=== PATIENT | female | born 1985 | race Caucasian/White ===

== ENCOUNTER 2021-04-28 02:58 | Emergency (ER) | payer OTHER, SELFPAY ==
--- NOTE | ~2021-04-28 | XR_ITS ---
EXAMINATION: XR chest 1V portable DATE: 04/28/2021 03:28 INDICATION: Left-sided chest pain. TECHNIQUE: A single frontal view of the chest was obtained. COMPARISON: None. FINDINGS: The chest demonstrates clear lungs without pneumonia, pleural effusion, or pneumothorax. Th e heart size is normal. IMPRESSION: 1. No acute cardiopulmonary disease. Reviewed, dictated and finalized at location B. ESSOGRAPH OPERATOR
[2021-04-28 03:09] VITALS: BP 125/71; PULSE 100; PULSE 85; RESP 14; TEMP 36.4; O2SAT 100
--- NOTE | 2021-04-28 03:14 | ECG_ITS ---
Measurements Intervals [place] Rate: 94 P: 75 ME: 167 QRS: 75 QRSD: 81 T: 42 QT: 342 QTc: 429 Interpretive Statements SINUS RHYTHM WITH SINUS ARRHYTHMIA POSSIBLE LEFT ATRIAL ENLARGEMENT BORDERLINE ST ABNORMALITY- ANTEROLATERAL LEADS BASELINE WANDER- II, III, AVF BORDERLINE ECG Electronically Signed On 04-28-2021 6:07:42 DATE NIGHT SITTER by Efrain Tomas D.O.
[2021-04-28 03:16] VITALS: BP 115/72; PULSE 81; RESP 18; O2SAT 100
--- NOTE | 2021-04-28 03:58 | ED.GENADULT ---
HPI - General Adult General Chief complaint: Chest Pain Stated complaint: chest pain after booster Time Seen by Provider: 04/28/21 03:07 History of Present Illness HPI narrative: Patient 35-year-old female who presents the emergency department with chief complaint of chest pain. The patient reports that she had her COVID-19 booster shot and started having discomfort in the left side of her chest. The patient states the pain is sharp pain worse with inspiration and worse with movement. The patient reports she saw her primary care physician they did not appreciate any axillary lymph nodes patient states the pain really starts about the area where she had the vaccine. The patient denies fever denies vomiting denies diaphoresis. Related Data Allergies Allergy/AdvReac Type Severity Reaction Status Date / Time amoxicillin Allergy Hives Verified 04/28/21 03:15 Review of Systems Review of Systems: A 10 system review of systems was completed on the patient and is negative except for what is stated in the HPI. Nursing and ancillary documentation was reviewed. Exam Narrative: GENERAL: Well-appearing, well-nourished, and in no acute distress. HEAD: Normocephalic, atraumatic. EYES: PERRLA and EOMI. ENT: Nares clear, no rhinorrhea or epistaxis. Mucous membranes moist. NECK: Supple. CHEST: Clear to auscultation. No respiratory distress. Chest wall is tender at the left sternal border at the costal cartilage HEART: Regular rate and rhythm. No murmur heard. Normal peripheral pulses. ABDOMEN: Soft, nontender, nondistended, normal active bowel sounds. EXTREMITIES: Normal range of motion. No edema. SKIN: Warm, dry, no rash. NEURO: No focal deficits. Alert and oriented x3. PSYCH: Normal mood and affect. Course Course Emergency Course: EKG sinus rhythm rate of [address] or ST depression Chest x-ray shows no evidence of focal infiltrate Vital Signs Vital signs: Vital Signs Temperature 36.4 C L 04/28/21 03:09 Pulse Rate 100 04/28/21 03:09 Respiratory Rate 14 04/28/21 03:09 Blood Pressure 125/71 04/28/21 03:09 Pulse Oximetry 100 04/28/21 03:09 Temperature 36.4 C L 04/28/21 03:09 Pulse Rate 75 04/28/21 04:18 Respiratory Rate 18 04/28/21 04:18 Blood Pressure 108/70 04/28/21 04:18 Pulse Oximetry 100 04/28/21 04:18 Medical Decision Making Vital Signs Vital Signs: Vital Signs Temperature 36.4 C L 04/28/21 03:09 Pulse Rate 100 04/28/21 03:09 Respiratory Rate 14 04/28/21 03:09 Blood Pressure 125/71 04/28/21 03:09 Pulse Oximetry 100 04/28/21 03:09 Temperature 36.4 C L 04/28/21 03:09 Pulse Rate 75 04/28/21 04:18 Respiratory Rate 18 04/28/21 04:18 Blood Pressure 108/70 04/28/21 04:18 Pulse Oximetry 100 04/28/21 04:18 Lab Data Result diagrams: 04/28/21 03:43 04/28/21 03:43 Labs: Lab Results 04/28/21 04/28/21 04/28/21 Range/Units 03:43 03:43 03:43 WBC 5.8 (4.5-10.0) K/mm3 RBC 4.54 (4.2-5.4) M/mm3 Hgb 14.0 (12.0-15.0) g/dL Hct 41.7 (37.0-47.0) % MCV 91.9 (80-100) fl MCH 30.8 (26-34) pg MCHC 33.6 (32-36) g/dl RDW 12.0 (11.5-14.5) % Plt Count 223 (150-375) k/mm3 MPV 9.6 (7.4-10.4) fl Immature Gran % (Auto) 0.2 (0-0.5) % Neut % (Auto) 47.0 (45.5-73.1) % Lymph % (Auto) 39.0 (18.3-44.2) % Meeker % (Auto) 7.8 (2.6-8.5) % Eos % (Auto) 4.8 H (0-4.4) % Baso % (Auto) 1.2 (0.2-1.2) % Lymph # (Auto) 2.26 (0.9-3.2) K/mm3 Meeker # (Auto) 0.5 (0.1-0.6) K/mm3 Eos # (Auto) 0.3 (0-0.3) K/mm3 Baso # (Auto) 0.1 (0.0-0.1) K/mm3 Abs Immat Gran (auto) 0.01 (0.00-0.031) K/mm3 Absolute Neuts (auto) 2.7 (1.3-6.7) K/mm3 Absolute Nucleated RBC 0.0 (0.0-0.012) K/mm3 Nucleated RBC % 0.0 (0.0-0.2) % PT 12.6 (11.1-14.7) Seconds INR 1.0 APTT 27.1 (22.3-36.8) SECONDS D-Dimer 0.42 (<0.48) ug/mL Sodium 139
[2021-04-28 04:02] LABS: Prothrombin Time 12.6 Seconds (11.1-14.7)
[2021-04-28 04:03] LABS: Partial Thromboplastin Time 27.1 SECONDS (22.3-36.8)
[2021-04-28 04:05] LABS: D Dimer 0.42 ug/mL (<0.48)
[2021-04-28 04:10] LABS: Alanine Aminotransferase 47 U/L (4-35); Albumin Level 4.4 g/dL (3.5-5.1); Alkaline Phosphatase 64 U/L (38-126); Anion Gap 11 mmol/L (8-16); Aspartate Amino Transferase 47 U/L (14-36); Bilirubin,Total 0.3 mg/dL (0.2-1.3); Blood Urea Nitrogen 12 mg/dL (7-17); Calcium 9.3 mg/dL (8.4-10.2); Carbon Dioxide 21 mmol/L (22-30); Chloride 107 mmol/L (98-107); Estimated CRCL calculation 84 ml/min; Estimated Glomerular Filt Rate > 60; Glucose 96 mg/dL (65-110); Lipase 78 U/L (23-300); Potassium 3.7 mmol/L (3.4-5.0); Sodium 139 mmol/L (137-145)
[2021-04-28 04:15] LABS: Basophils Absolute Auto 0.1 K/mm3 (0.0-0.1); Basophils Percent Auto 1.2 % (0.2-1.2); Eosinophils Absolute Auto 0.3 K/mm3 (0-0.3); Eosinophils Percent Auto 4.8 % (0-4.4); Hematocrit 41.7 % (37.0-47.0); Immature Granulocyte Absolute 0.01 K/mm3 (0.00-0.031); Immature Granulocyte Percent A 0.2 % (0-0.5); Lymphocytes Absolute Auto 2.26 K/mm3 (0.9-3.2); Mean Corpuscular HGB Conc 33.6 g/dl (32-36); Mean Corpuscular Hemoglobin 30.8 pg (26-34); Mean Corpuscular Volume 91.9 fl (80-100); Mean Platelet Volume 9.6 fl (7.4-10.4); Monocytes Absolute Auto 0.5 K/mm3 (0.1-0.6); Monocytes Percent Auto 7.8 % (2.6-8.5); Neutrophils Absolute Auto 2.7 K/mm3 (1.3-6.7); Platelet Count Result 223 k/mm3 (150-375); Red Blood Count 4.54 M/mm3 (4.2-5.4); White Blood Count 5.8 K/mm3 (4.5-10.0)
[2021-04-28 04:18] VITALS: BP 108/70; PULSE 75; RESP 18; O2SAT 100
[2021-04-28 04:22] LABS: Troponin I < 0.012 ng/mL (0.000-0.034)
[2021-04-28] MEDS: HYDROcodone/acetaminophen (*CRX) 5-325 MG TABLET 1 TAB PO (05:07)
[2021-04-28 05:10] VITALS: BP 101/53; PULSE 75; RESP 18; O2SAT 100
== END 2021-04-28 05:10 | disposition home or self-care (01) ==
PROVIDERS: Emergency Provider Emergency Medicine; PCP Family Medicine
DX: R07.89 Other chest pain (principal); R94.31 Abnormal electrocardiogram [ECG] [EKG]
CPT/HCPCS: 36415; 71045; 80053; 81025; 83690; 84484; 85025; 85380; 85610; 85730; 93005; 99284; A9270

== ENCOUNTER 2021-05-04 09:16 | Outpatient (CLI) | payer OTHER, SELFPAY ==
--- NOTE | ~2021-05-04 | XR_ITS ---
XR ribs LT 2V w CXR 2V DATE: 05/04/2021 09:41 INDICATION: Left upper anterior chest pain TECHNIQUE: PA and lateral chest. 3 views of the left ribs. COMPARISON: 04/28/2021 portable AP chest FINDINGS: Normal heart size. No hilar or mediastinal enlargement. No pulmonary infiltrate or consolid ation, pleural effusion or pulmonary vascular congestion or pneumothorax. Minimal dextroscoliosis of the thoracic spine. No left rib fracture or bone destruction. IMPRESSION: No active cardiopulmonary disease or significant abnormality of the left ribs Reviewed, dictated and finalized at location A. CT MARKETING SPECIALIST
== END 2021-05-04 09:17 | disposition home or self-care (01) ==
LOC: ANHIMG 09:20
PROVIDERS: PCP Family Medicine; Visit Provider Family Medicine
DX: R07.89 Other chest pain (principal)
CPT/HCPCS: 71046; 71100

== ENCOUNTER → 2022-07-05 13:39 | Outpatient (CLI) | payer OTHER, SELFPAY ==
--- NOTE | ~2022-07-05 | US_ITS ---
EXAMINATION: US soft tissue head and neck DATE: 07/05/2022 14:02 INDICATION: Localized enlarged lymph nodes at the head/neck. TECHNIQUE: Multiple grayscale and Doppler ultrasound images of the bilateral submandibular regions of concern were obtained. COMPARISON: None FINDINGS: There are multiple hypoechoic lymph nodes with typical ovoid configuration with central fatty michael wi thin and along the margins of the bilateral submandibular glands. The largest on both the left and ri ght measure up to 6 mm in maximal short axis diameters. IMPRESSION: 1. Bilateral intraparotid and periparotid lymph nodes which remain within normal limits in size. Reviewed, dictated and finalized at location A. IMPRESSION: 1. Bilateral intraparotid and periparotid lymph nodes which remain within zonia l limits in size.
== END ==
PROVIDERS: PCP Family Medicine; Visit Provider Nurse Practitioner
DX: R59.0 Localized enlarged lymph nodes (principal)
CPT/HCPCS: 76536

== ENCOUNTER 2024-02-28 08:18 | Outpatient (CLI) | payer OTHER, SELFPAY ==
[2024-02-28 14:00] LABS: Basophils Absolute Auto 0.1 K/mm3 (0.0-0.1); Basophils Percent Auto 1.5 % (0.2-1.2); Eosinophils Absolute Auto 0.2 K/mm3 (0-0.3); Eosinophils Percent Auto 3.6 % (0-4.4); Hematocrit 44.7 % (37.0-47.0); Hemoglobin 14.3 g/dL (12.0-15.0); Immature Granulocyte Absolute 0.01 K/mm3 (0.00-0.031); Immature Granulocyte Percent A 0.2 % (0-0.5); Lymphocytes Absolute Auto 2.15 K/mm3 (0.9-3.2); Lymphocytes Percent Auto 40.3 % (18.3-44.2); Mean Corpuscular Hemoglobin 31.4 pg (26-34); Mean Platelet Volume 10.5 fl (7.4-10.4); Monocytes Absolute Auto 0.3 K/mm3 (0.1-0.6); Neutrophils Absolute Auto 2.6 K/mm3 (1.3-6.7); Neutrophils Percent Auto 48.4 % (45.5-73.1); Platelet Count Result 236 k/mm3 (150-375); Red Blood Count 4.56 M/mm3 (4.2-5.4); Red Cell Distribution Width 12.7 % (11.5-14.5); White Blood Count 5.3 K/mm3 (4.5-10.0)
[2024-02-28 15:23] LABS: LDL Cholesterol Direct 95 mg/dL
[2024-02-28 16:31] LABS: Alanine Aminotransferase 47 U/L (6-35); Albumin Level 4.6 g/dL (3.5-5.1); Alkaline Phosphatase 83 U/L (38-126); Anion Gap 8 mmol/L (4-12); Aspartate Amino Transferase 98 U/L (14-36); Bilirubin,Total 0.6 mg/dL (0.2-1.3); Blood Urea Nitrogen 14 mg/dL (7-17); Calcium 9.4 mg/dL (8.4-10.2); Carbon Dioxide 29 mmol/L (22-30); Chloride 102 mmol/L (98-107); Cholesterol 177 mg/dL (0-200); Estimated Glomerular Filt Rate > 60; Glucose 70 mg/dL (65-110); HDL Direct 40 mg/dL; Potassium 4.3 mmol/L (3.4-5.0); Sodium 139 mmol/L (137-145); Triglycerides 81 mg/dL (<150)
[2024-02-28 21:21] LABS: Vitamin D 25 Hydroxy 36.5 ng/mL
[2024-02-28 22:10] LABS: Free T4 Free Thyroxine Reflex 0.81 ng/dL (0.78-2.19)
[2024-02-28 22:58] LABS: Total Triiodothyronine (T3) 1.16 NG/ML (0.97-1.69)
== END 2024-02-28 08:19 | disposition home or self-care (01) ==
LOC: ANHGOSHLAB 08:19
PROVIDERS: PCP Family Medicine; Visit Provider Family Medicine
DX: Z00.00 Encounter for general adult medical examination without abnormal findings (principal); Z13.29 Encounter for screening for other suspected endocrine disorder; R73.9 Hyperglycemia, unspecified; E78.5 Hyperlipidemia, unspecified; E53.8 Deficiency of other specified B group vitamins; E55.9 Vitamin D deficiency, unspecified; Z79.899 Other long term (current) drug therapy
CPT/HCPCS: 36415; 80053; 80061; 82306; 82607; 83036; 84439; 84443; 84480; 85025

== ENCOUNTER 2024-03-03 08:16 | Outpatient (CLI) | payer OTHER, SELFPAY ==
[2024-03-03 23:33] LABS: Hepatitis B Surface Antigen Negative (Negative)
[2024-03-03 23:39] LABS: HAV RESULT Negative (Negative); Hepatitis B Core IgM Result Negative (Negative)
[2024-03-03 23:51] LABS: Hepatitis C Virus Antibody Negative (Negative)
== END 2024-03-03 08:17 | disposition home or self-care (01) ==
LOC: ANHGOSHLAB 08:18
PROVIDERS: PCP Family Medicine; Visit Provider Nurse Practitioner Family
DX: R74.8 Abnormal levels of other serum enzymes (principal)
CPT/HCPCS: 36415; 80074

== ENCOUNTER 2024-03-10 13:53 | Outpatient (CLI) | payer OTHER, SELFPAY ==
--- NOTE | ~2024-03-10 | US_ITS ---
EXAMINATION: US thyroid DATE: 03/10/2024 14:14 INDICATION: Other specified abnormal findings of blood chemistry. Abnormal TSH. TECHNIQUE: Multiple ultrasound images of the thyroid were obtained. COMPARISON: None. FINDINGS: The right thyroid lobe measures 3.6 x 1.1 x 1.2 cm. The left thyroid lobe measures 4.7 x 1.0 x 1.3 c m. The thyroid is diffusely heterogeneous and hypoechoic. Vascularity is normal. In the left thyroid lobe, there is an 11 mm solid, hypoechoic, wider than tall nodule with lobulated margin without echo genic foci (TI-RADS TR4). IMPRESSION: 1. Small thyroid nodule. Thyroid ultrasound is recommended in one year. 2. Heterogeneous thyroid, likely chronic lymphocytic (Judith) thyroiditis. Reviewed, dictated and finalized at location A. ODITY SUPERVISOR
== END 2024-03-10 13:54 | disposition home or self-care (01) ==
LOC: MICIMG 13:53
PROVIDERS: PCP Family Medicine; Visit Provider Nurse Practitioner Family
DX: E04.1 Nontoxic single thyroid nodule (principal); R79.89 Other specified abnormal findings of blood chemistry
CPT/HCPCS: 76536

== ENCOUNTER 2024-04-22 08:24 | Outpatient (CLI) | payer OTHER, SELFPAY ==
[2024-04-22 09:30] LABS: Alanine Aminotransferase 20 U/L (6-35); Albumin Level 4.4 g/dL (3.5-5.1); Alkaline Phosphatase 68 U/L (38-126); Anion Gap 8 mmol/L (4-12); Aspartate Amino Transferase 22 U/L (14-36); Bilirubin,Total 0.8 mg/dL (0.2-1.3); Blood Urea Nitrogen 16 mg/dL (7-17); Carbon Dioxide 25 mmol/L (22-30); Chloride 105 mmol/L (98-107); Estimated Glomerular Filt Rate > 60; Glucose 92 mg/dL (65-110); Sodium 138 mmol/L (137-145)
[2024-04-22 10:27] LABS: Free T4 Free Thyroxine 1.27 ng/dL (0.78-2.19)
[2024-04-23 07:49] LABS: Triiodothyronine T3 Free 3.4 pg/mL (2.3-4.2)
[2024-04-26 22:59] LABS: Thyrotropin Receptor Antibody 4.01 IU/L (< OR = 2.00)
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
== END 2024-04-22 08:25 | disposition home or self-care (01) ==
PROVIDERS: PCP Family Medicine; Visit Provider Family Medicine
DX: E07.9 Disorder of thyroid, unspecified (principal); R79.89 Other specified abnormal findings of blood chemistry; R74.8 Abnormal levels of other serum enzymes
CPT/HCPCS: 36415; 80053; 83519; 84439; 84443; 86800; 86850

== ENCOUNTER 2024-06-30 08:29 | Outpatient (CLI) | payer OTHER, SELFPAY ==
--- OUTSIDE RECORDS SUMMARY | 2024-06-30 08:54 | XMS_ITS | Referral Summary ---
Author Organization [facility] Address [address] [place] [address] Care Team Providers Care Rug Receiving Clerk Name Role Phone Luann Hua MD Primary Care Provider [phone] Source Comments [facility],non-owned Affiliates and Associated Physician Practices is amultiple site organization consisting of ambulatory clinics and hospital sitesin [place], [place], [place] and [place]. This disclosure is being madepursuant to the Care Everywhere program and may not contain all information available regarding this patient. Last updated 18.[facility] Allergies Active Allergy Reactions Criticality Noted Date Comments Amoxicillin Rash Medium 06/11/2019 Medications * Be aware that medications may not be up to date on this document. Alwaysverify current medications with the patient. Medication Sig Dispensed Refills Start Date End Date Status Boric AcidIndications:Yeast infection involving the vagina and surrounding area 600 mg capsules. Use as directed. # 30 capsules 1 g 2 03/22/2020 Active fluconazole (DIFLUCAN) 200 MG tabletIndications:His tory of candidiasis One by mouth every other day for three doses then one weekly 15 tablet 1 05/23/2020 Active Social History Tobacco Use Types Packs/Day Years Used Date Smoking Tobacco: Never Smokeless Tobacco: Never Alcohol Use Standard Drinks/Week Comments Never 0 (1 standard drink = 0.6 oz pur e alcohol) AUDIT-C Answer Date Recorded Q1: How often do you have a drink containing alc ohol? Never 03/10/2020 Average Number of Drinks Not on file 020 Frequency of Binge Drinking Not on file 02/15 Sex and Gender Information Value Date Recorded Sex Assigned at Not on file Gender Identity Not on file Sexual Orientation Not on file Last Filed Vital Signs Vital Sign Reading Time Taken Comments Blood Pressure 118/78 06/22/2020 10:52 AM [employer] [employer] Pulse 87 06/11/2019 11:34 AM [facility] [employer] Temperature 36.3 C (97.4 F) 03/10/2020 11:08 AM [facility] [employer] Respiratory Rate 16 06/11/2019 11:34 AM [facility] [employer] Oxygen Saturation 98% 06/11/2019 11:34 AM [facility] Inhaled Oxygen Concentration - - Weight 71.7 kg (158 lb) 06/22/2020 10:52 AM [facility] [employer] Height 170.2 cm (5' 7 ) 06/22/2020 10:52 AM [employer] Body Mass Index 24.75 06/22/2020 10:52 AM [facility] Plan of Treatment Not on file Care Teams Rug Receiving Clerk Relationship Specialty Start Date End Date Luann Hua MD [address] [place] [address] PCP - General 11/20/19
--- OUTSIDE RECORDS SUMMARY | 2024-06-30 08:54 | XMS_ITS | Clinical Summary ---
Author Organization [facility] Address [address] [place] [address] Care Team Providers Care Executive Communications Manager Name Role Phone Aracely Samuel MD Primary Care Provider Allergies Active Allergy Reactions Criticality Noted Date Comments Amoxicillin Rash Medium 06/22/2022 Medications vit 21-ipax-jzabx-dh a 27mg iron- 800 mcg-250 mg capsule Take 1 tablet by mouth daily Active omega-3 fatty acids (FISH OIL CONCENTRATE ORAL) Take by mouth Active cholecalciferol 25 mcg (1,000 unit) tablet Take 1 tablet (1,000 Units total) by mouth daily Every other day Active ibuprofen (ADVIL,MOTRIN) 600 mg tablet Take 1 tablet (600 mg total) by mouth every 6 (six) hours as needed for pain 60 tablet 4 Active Additional Information Patient not taking.Reported on 08/24/2023 docusate sodium (COLACE) 100 mg capsuleIndicatio ns:constipation Take 1 capsule (100 mg total) by mouth 2 (two) times a day with a glass of water 60 capsule 4 Active polyethylene glycol (MIRALAX) 17 gram/dose bulk powder Take 17 g by mouth daily 510 g 4 Active Additional Information Patient not taking.Reported on 08/24/2023 levothyroxine (SYNTHROID) 100 mcg tabletIndication s:Hypothyroidism , unspecified type Take 1 tablet (100 mcg total) by mouth payroll and benefits manager before breakfast 90 tablet 4 Active Active Problems Patient Care Coordination No te Formatting of this note is d ifferent from the original. IVF Check List Partner name: Rudy Iqbal Partner : 07/10/1986 Blue Plan Completed: 06/27/22 Protocol: Antagonist [] PGT - M [] PGT - A [] PGT - SR [] Biopsy & Freeze All [] Fresh Transfer - Bx remaining and Freeze [x] Era or [] Other - [] Orders [x] Blood Drawn [] Appointment with Evelin Special Instructions: LMP: Cycles: EMP: []PNV []OCPS []Zithromax/Doxy []Medrol []Letrozole []Clomid []Estrace 2mg BID/TID - []Gonal F/Follistim []Menopur []Lupron []Cetrotide/Ganirelix []HCG []Lupron Trigger []JAMSHID or other - []Lovenox/ Baby ASA start - Cycle Start BMI: Body mass index is 25.22 kg/m . CPAP Needed: no [] Medically Clear [x] Orientation: [] Placed on IVF Schedule [] Financially Clear (EMP to EO if needed): [x] Consent Sent [] Consents Returned/Scanned into chart: [] Schedule Mailed/sent via Cloud[employer]: [] IVF Injectable Meds Ordered - Pharm - [] IVF Oral Meds Pharm - [] Spouse Antibiotics Pharm - [x] Smart Set Orders Placed [] Confirmed Start Button [x] COVID Counseling note sent to patient [x] Genetic Panel - drawn Problem Noted Date Diagnosed Date Encounter for male factor infertility in female patient 12/21/2023 Female infertility 12/21/2023 Screening for thyroid disorder 12/21/2023 Encounter for fertility testing 12/21/2023 care following vaginal delivery 07/11 Overview (07/13/2023): 07/12/2023 PPD #1 (CZ) 38 yo @ 39w0d s/p VAVD of viable male infant. VSS, afebrile AB+, Rubella Immune Hgb: 13.3 QBL 201 Mom and baby doing well Normal exam Ambulating, voiding, and tolerating PO, Lochia WNL MOF: Breast MOC: None VTE: Frequent ambulation Dispo: Continue routine care Subclinical hypothyroid: Patient does not feel comfortable continuing with the 75 mg and 150 mg and would prefer to take 75 mg until 6 weeks and re- evaluate. 07/13/23, PPD#2 (JF) S/p uncomplicated EBL 200 cc, Hgb 13.1 AB+, Rubella immune Vital signs reviewed and normal, MR BP x 1 Ambulating, tolerating PO, voiding spontaneously, lochia moderate, pain controlled MOF: MOC: declines, reviewed spacing VTE ppx: The patient has the following MAJOR risk factors none and the following MINOR risk factors none. SCDs ordered for VTE prophylaxis. Mood: stable Hemorrhoids: discussed tucks pads, Sitz baths and stool softeners, rx for Prep H sent Dispo: Desires discharge home today. Encounter for elective induction of labor 2023 Overview (07/13/2023): 07/11/2023 0840 (CZ) 38 yo @ 39w0d here for eIOL. Her is complicated by IVF , AMA, and subclinical hypothyroid taking synthroid. VSS, Afebrile AB+, Rubella Immune GBS Negative Reactive tracing SVE: 150/-2 S/p miso x2 Cook cath placed with patient consent. 60 cc in uterine and 60 cc in vaginal Initiate OT and titrate 2 x 2 to 20 Consider AROM when appropriate Pain management per patient wishes Anticipated 07/11/2023 1454 (CZ) VSS, afebrile Variable decelerations noted resolved with position changes. Now Category 1 Cook cath out SVE 5/80/-2 AROM performed with patient consent - moderate amount of clear odorless fluid noted OT @ 8 Continue titration per protocol Pain management per patient wishes Anticipate 07/11/2023 1710 (CZ) VSS, afebrile Patient s/p epidural Blood pressure dropped to 93/54, patient symptomatic Prolonged decel noted Fluid bolus initiated Anesthesia called to bedside FSE applied Dr. Marte called to bedside Terb in room, drawn, but not given Decel resolved after position changes and interventions OT discontinued before epidural due to decelerations SVE 790/-1 Anticipate Antepartum multigravida of advanced maternal age 1102/21/2023 Hypothyroidism during in third trimest er 02/21/2023 resulting from in vitro fertilization, antepartum 12/07/2022 Encounters Date Type Department Care Team Description 05/16/2024 12:38 PM CORPORATE TRAFFIC MANAGER - 05/16/2024 11:59 PM CORPORATE TRAFFIC MANAGER Hospital Encounter [facility] [address] [address] Bilateral breast lump; Mother currently breast-feeding Discharge Disposition: Discharge to home or self care 05/16/2024 12:38 PM CORPORATE TRAFFIC MANAGER - 05/16/2024 11:59 PM CORPORATE TRAFFIC MANAGER Hospital Encounter [facility] [address] [place] [phone] Bilateral breast lump; Mother currently breast-feeding Discharge Disposition: Discharge to home or self care 2024 11:15 AM CORPORATE TRAFFIC MANAGER Office Visit [facility] Obstetrical Gynecology [address] [place] [address] [place] [phone] Yessi Lujan, GILBERT Mass of left breast, unspecified quadrant (Primary Dx); Bilateral breast lump; Mother currently breast-feeding 05/09/2024 Telephone [facility] Obstetrical Gynecology [address] [place] [address] [place] [phone] Katie Serrano RN from Last 3 Months Immunizations Immunization Administration Dates Next Due MMR 07/13/2023(Deferred: No longer n eeded) Tdap 04/24/2023 Varicella 07/13/2023(Deferred: No longer n eeded) Surgical History Surgery Date Site/Laterality Comments WISDOM TOOTH EXTRACTION OVUM / OOCYTE RETRIEVAL 10/25/2022 EGG RETRIEVAL TRANSFER EMBRYO INTRAUTERINE 10/30/2022 EMBRYO TRANSFER 1 DAY 5 Medical History Medical History Date Comments Thyroid disease taking for ferti lity issues Family History Medical History Relation Name Comments Diabetes Brother Hypertension Brother Hypertension Father Breast cancer Neg Hx Ovarian cancer Neg Hx Uterine cancer Neg Hx Relation Name Status Comments Brother Father Alive Mother Alive Social History Tobacco Use Types Packs/Day Years Used Date Smoking Tobacco: Never Passive Smoke Exposure: Never Tobacco Cessation:Counseling Given: Not Answered AUDIT-C Answer Date Recorded Q1: How often do you have a drink containing alcohol? Never 07/10/2023 Q2: How many drinks containi ng alcohol do you have on a typical day when you are drinking? Patient does not drink Q3: How often do you have si x or more drinks on one occasion? Never 07/10/2023 Overall Financial Resource Strain (CARDIA) Answe r Date Recorded How hard is it for you to pa y for the very basics like food, housing, medical care, and heating? Not hard at all 07/10/2023 Hunger Vital Sign Answer Date Recorded Within the past 12 months, y ou worried that your food would run out before you got the money to buy more. Never true 07/10/19 24 Within the past 12 months, t he food you bought just didn't last and you didn't have money to get more. Never true 07/10/2023 PRAPARE - Transportation Answer Date Re corded In the past 12 months, has l ack of transportation kept you from medical appointments or from getting medications? No 06/15 In the past 12 months, has l ack of transportation kept you from meetings, work, or from getting things needed for daily living? No 07/10/2023 Housing Stability Vital Sign Answer Huy e Recorded In the last 12 months, was t here a time when you were not able to pay the mortgage or rent on time? No 07/10/2023 Number of Places Lived in the Last Year Not on f ile 07/10/2023 In the last 12 months, was t here a time when you did not have a steady place to sleep or slept in a snf (including now)? No 07/10/2023 [place] Depression Scale Answer Date Recorded [place] Depression Scale Total 3 08/24/2023 The thought of harming myself has occurred to me . Never 08/24/2023 Personal Safety Answer Date Recorded Have you ever been in or are you currently in a harmful physical or emotional relationship or is someone making you feel afraid or unsafe? Denies 07/10/2023 Comments No Sex and Gender Information Value Date Recorded Sex Assigned at Not on file Legal Sex Female 1:47 PM CORPORATE TRAFFIC MANAGER Gender Identity Not on file Sexual Orientation Not on file Obstetrics History Para Term AB IAB SAB Ectopic Multiple Livin g Live Births 1 1 1 0 0 0 0 0 0 1 1 Date Outcome GA Total Labor Labor/2nd/3rd Weight Sex Type Anes PTL Bethanie A1 A5 Name Clin 2023 Term 39w 0d 3h 49m 3h 25m/0h 19m/0h 05m 2.94 kg (6 lb 7.7 oz) M Vagina l Epidur al N Livin g 8 9 Peterson Norwood am, MD Complications: Intolera nce Delivery Location:[facility] Main C ampus ([facility]) Comments Age of first cycle: 12 Age at live : 38 Age of menopause : 0 Last Filed Vital Signs Vital Sign Reading Time Taken Comments Blood Pressure 90/60 2024 11:16 AM CORPORATE TRAFFIC MANAGER Pulse 102 07/13/2023 9:59 AM CDT Temperature 37.2 C (99 F) 07/13/2023 9:59 AM CDT Respiratory Rate 16 07/13/2023 9:59 AM CDT Oxygen Saturation 98% 07/13/2023 9:59 AM CDT Inhaled Oxygen Concentration - - Weight 71.8 kg (158 lb 3.2 oz) 2024 11:16 AM CORPORATE TRAFFIC MANAGER Height 170.2 cm (5' 7 ) 2024 11:16 AM CORPORATE TRAFFIC MANAGER Body Mass Index 24.78 2024 11:16 AM CORPORATE TRAFFIC MANAGER Plan of Treatment Health Maintenance Due Date Last Done Comments Varicella Vaccines (1 of 2 - 13+ 2-dose series) 1999 Hepatitis B Screening 2004 Covid-19 Vaccine (2023-2 5 season) 2023 04/23/2021, 09/11/2020, 08/21/2020 Influenza Vaccine (#1) 2023 Depression Screening 08/23/2024 08/24/2023 Cervical Cancer Screening 12/17/20242023, 12/18/2023 Regular Well Visit/Exam 18-64 12/17/2024 12/18/2023 DTaP/Tdap/Td Vaccine (2 - Td or Tdap) 04/24/2033 04/24/2023 Hepatitis C Screening Completed 06/22/2022 HPV Vaccines Aged Out No longer eligi ble based on patient's age to complete this topic Pneumococcal vaccine <65 Aged Out No longer eligible based on patient's age to complete this topic Procedures Procedure Name Priority Date/Time Associated Diagnosis Comments US BREAST BILATERAL LIMITED Schedule Routine, Read Routine (OP Routine) 05/16/2024 1:41 PM CORPORATE TRAFFIC MANAGER Bilateral breast lump Mother currently breast-feeding DIAGNOSTIC MAMMOGRAM BILATERAL W MAYKEL Schedule Routine, Read Routine (OP Routine) 05/16/2024 1:11 PM CORPORATE TRAFFIC MANAGER Bilateral breast lump Mother currently breast-feeding PAP AND HIGH RISK HPV, REFLEX TO GENOTYPING Routine 12/18/2023 9:44 AM CDT Well woman exam HEPATITIS C ANTIBODY Routine 06/22/2022 10:28 AM CORPORATE TRAFFIC MANAGER Encounter for fertility testing from Last 3 Months or Most Recently Relevant to Health Maintenance Results * US Breast Bilateral Limited (05/16/2024 1:41 PM CORPORATE TRAFFIC MANAGER) Anatomical Region Laterality Modality Breast Bilateral Ultrasound 05/16/2024 1:48 PM CORPORATE TRAFFIC MANAGER Impressions 05/16/2024 1:48 PM CORPORATE TRAFFIC MANAGER No imaging findings to suggest malignancy are seen. The patient may return to screening mammography as per ACR guidelines. OVERALL FINAL ASSESSMENT: [id number] Electronically signed by: Ni Ellis M.D. Narrative 05/16/2024 1:48 PM CORPORATE TRAFFIC MANAGER EXAMINATION: BILATERAL DIGITAL DIAGNOSTIC MAMMOGRAM AND DIGITAL BREAST TOMOSYNTHESIS; BILATERAL BREAST SONOGRAM HISTORY: Lactating patient complains of diffuse lumpiness. The nurse describes palpable abnormalities in both 12:00 breasts. COMPARISON: None TECHNIQUE: Full field digital mammographic views of the bilateral breast(s) were performed, including computer aided detection (CAD) and digital breast tomosynthesis (DBT). Directed ultrasound evaluation of the bilateral breast(s) was performed. BREAST PARENCHYMAL COMPOSITION: The breasts are extremely dense, which lowers the sensitivity of mammography. MAMMOGRAM FINDINGS: There are no suspicious masses. No suspicious calcifications are seen. There is no unexplained architectural distortion. There is no skin thickening seen. There are no mammographically abnormal lymph nodes seen in the axillae or elsewhere. ULTRASOUND FINDINGS: Sonography through both 12:00 regions, in particular in both retroareolar breasts, demonstrates ductal ectasia. The dilated ducts containing fluid. No masses are seen. Yessi Lujan NP [facility] MAMMO PROCEDURES Final R esult * DIAGNOSTIC MAMMOGRAM BILATERAL W MAYKEL (05/16/2024 1:11 PM CORPORATE TRAFFIC MANAGER) Anatomical Region Laterality Modality Breast Bilateral Mammography 05/16/2024 1:48 PM CORPORATE TRAFFIC MANAGER Impressions 05/16/2024 1:48 PM CORPORATE TRAFFIC MANAGER No imaging findings to suggest malignancy are seen. The patient may return to screening mammography as per ACR guidelines. OVERALL FINAL ASSESSMENT: [id number] Electronically signed by: Ni Ellis M.D. Narrative 05/16/2024 1:48 PM CORPORATE TRAFFIC MANAGER EXAMINATION: BILATERAL DIGITAL DIAGNOSTIC MAMMOGRAM AND DIGITAL BREAST TOMOSYNTHESIS; BILATERAL BREAST SONOGRAM HISTORY: Lactating patient complains of diffuse lumpiness. The nurse describes palpable abnormalities in both 12:00 breasts. COMPARISON: None TECHNIQUE: Full field digital mammographic views of the bilateral breast(s) were performed, including computer aided detection (CAD) and digital breast tomosynthesis (DBT). Directed ultrasound evaluation of the bilateral breast(s) was performed. BREAST PARENCHYMAL COMPOSITION: The breasts are extremely dense, which lowers the sensitivity of mammography. MAMMOGRAM FINDINGS: There are no suspicious masses. No suspicious calcifications are seen. There is no unexplained architectural distortion. There is no skin thickening seen. There are no mammographically abnormal lymph nodes seen in the axillae or elsewhere. ULTRASOUND FINDINGS: Sonography through both 12:00 regions, in particular in both retroareolar breasts, demonstrates ductal ectasia. The dilated ducts containing fluid. No masses are seen. Yessi Lujan NP [facility] MAMMO PROCEDURES Final R esult * Pap and High Risk HPV and Genotyping (Cytology Component) (12/18/2023 9:44 AM CDT) Thin prep (Pap test) 12/18/2023 9:44 AM CDT 12/19/2023 10:38 AM CDT Narrative [facility] - 12/24/2023 7:44 AM CDT EPIC results best viewed via link to PDF [facility] [place] [address] Note to Patients: This report may contain a detailed description of human tissue sent by a health care provider to the laboratory for pathologic evaluation. The content of this report is essential for diagnosis and may provide important critical findings. This information may be unfamiliar to patients to review without a medical professional present. It is advised that the patient review this report in the presence of a health care provider who can answer questions and explain the details. CYTOPATHOLOGY REPORT FINAL Patient Name: JULI IQBAL Gender: F : 1985 (Age: 38) Address: [address] [place], [place] [id number] Hospital #: [id number] Service: UNKNOWN Location: Patient Type: [facility] SPECIMEN Taken: 12/18/2023 Received: 12/19/2023 Accessioned: 12/19/2023 Reported: 12/24/2023 Physician(s): Janeth Thorpe CNM FINAL INTERPRETATION SOURCE OF SPECIMEN Liquid based Thin Prep pap with HPV: STATEMENT OF ADEQUACY - Satisfactory for evaluation - Endocervical cells/transformation zone sample present GENERAL CATEGORIZATION: - Negative for squamous intraepithelial lesion or malignancy Comments (Normal-Negative for High Risk HPV) HPV HR 16- Not detected HPV HR 18-Not detected HPV HR non 16/18- Not detected Interpretive Data Nucleic acid amplification for detection of high-risk Human Papilloma virus (HPV) is performed by the Neftali Kvng 6800 HPV test. This assay specifically detects HPV- 16 and HPV-18 genotypes. The following HPV genotypes are detected as high-risk HPV: HPV-31, 33, 35, 39, 45, 51, 52, 56, 58, 59, 66, and 68. This assay has been approved by the [place] Food and Drug Administration for detection of HPV in cervical specimens collected by a physician using an endocervical brush/spatula or cervical broom and placed in the ThinPrep Pap Test PreservCyt collection containers. The performance characteristics of this test have been verified by the [facility] Molecular Infectious Disease laboratory. Correlate with reported cytology results, as applicable. Interpretive data last revised 22 tcg/12/24/2023 07:44 CATHERINE Baird (ASCP) Report Electronically Reviewed and Signed Out By CATHERINE Baird (ASCP) 12/24/2023 07:44:51 Cervicovaginal Cytology (Pap Test) Disclaimer: The Pap test is a screening test used to detect cervical cancer and its precursors; it is not a diagnostic procedure. False negative and false positive results do occur. Pap test results should be interpreted in the context of pertinent clinical information and biopsy results as indicated. [facility] Clinical Laboratory Improvement Amendments (CLIA) mandate that cytologic and histologic results be correlated for laboratory rn clinical quality & improvement standards. FOR ALL HIGH-GRADE CASES we request submission of follow-up histological material and/or reports that have not been previously provided so that we may fulfill said required standards. Gross Description A. Liquid based Thin Prep pap with HPV: Cervical/vaginal - Screening ThinPrep Clinical Diagnosis and History Last Menstrual Period: 11/22/23 The patient is a 38 year old female with wwe. Report Images and scanned documents, if included only viewable in PDF version The performance characteristics of some immunohistochemical stains, in-situ hybridization and fluorescence in-situ hybridization tests and immunophenotyping by flow cytometry cited in this report (if any) were determined by the Surgical Pathology Department at [facility] as part of an ongoing senior data quality analyst program and in compliance with federally mandated regulations drawn from the Clinical Laboratory Improvement Act of 1988 (CLIA '88). Some of these tests rely on the use of analyte specific reagents and are subject to specific labeling requirements by the [place] Food and Drug Administration. Such diagnostic tests may only be performed in a facility that is certified by the Department of Health and Human Services as a high complexity laboratory under CLIA '88. The FDA has determined that such clearance or approval is not necessary. This test is used for clinical purposes. It should not be regarded as investigational or for research. Nevertheless, federal rules concerning the medical use of analyte specific reagents require that the following disclaimer be attached to the report: This test was developed and its performance characteristics determined by the Surgical Pathology Department of [facility]. It has not been cleared or approved by the U. S. Food and Drug Administration. Janeth Thorpe CNM LAB CYTOLOGY ORDERA BLES Final Result [facility] * Hepatitis C antibody (06/22/2022 10:28 AM CORPORATE TRAFFIC MANAGER) Hep C Ab Nonreactive Nonreactive [facility] Comment:Antibodies to HCV no t detected. Does NOT exclude the possibility of recent exposure to HCV. Current interpretive data was last revised on 21 Blood 06/22/2022 10:2 8 AM CORPORATE TRAFFIC MANAGER 06/22/2022 2:11 PM CORPORATE TRAFFIC MANAGER us Rolan Suresh MD LAB MICROBIOLOGY - GENERA L ORDERABLES Final Result [facility] Department [place] [address] from Last 3 Months or Most Recently Relevant to Health Maintenance Insurance [place] [address] LOCAL PLUS Advance Directives For more information, please contact: [phone] * Full Code (Latest Code Status on File) Date Activated Date Inactivated Comments 07/11/2023 7:30 PM 07/13/2023 7:55 PM * Full Code Date Activated Date Inactivated Comments 07/10/2023 11:09 PM 07/11/2023 7:30 PM Full CPR in case of cardiopulmonary arrest * Full Code Date Activated Date Inactivated Comments 10/25/2022 7:54 AM 10/26/2022 5:33 AM Care Teams Executive Communications Manager Relationship Specialty Start Date End Date Aracely Samuel MD PCP - General Family Practice 06/21/22
--- OUTSIDE RECORDS SUMMARY | 2024-06-30 08:54 | XMS_ITS | Clinical Summary ---
Author Organization [facility] Address [address] [place] [address] Care Team Providers Care Vocational Rehabilitation Counselor Name Role Phone Luann Hua MD Primary Care Provider [phone] Source Comments [facility],non-owned Affiliates and Associated Physician Practices is amultiple site organization consisting of ambulatory clinics and hospital sitesin [place], [place], [place] and [place]. This disclosure is being madepursuant to the Care Everywhere program and may not contain all information available regarding this patient. Last updated 18.[facility] Allergies Active Allergy Reactions Criticality Noted Date [...] one weekly 15 tablet 1 05/23/2020 Active Family History Medical History Relation Name Comments Diabetes - Type 1 Brother High Cholesterol Brother Hypertension Brother Hypertension Father CAD (Coronary Artery Disease) Maternal Grandfather Osteoporosis Paternal Grandmother Relation Name Status Comments Brother Father Maternal Grandfather Paternal Grandmother Social History Tobacco Use Types Packs/Day Years [...] Comments Blood Pressure 118/78 06/22/2020 10:52 AM LEAD SOFTWARE DEVELOPER Pulse 87 06/11/2019 11:34 AM LEAD SOFTWARE DEVELOPER Temperature 36.3 C (97.4 F) 03/10/2020 11:08 AM LEAD SOFTWARE DEVELOPER Respiratory Rate 16 06/11/2019 11:34 AM LEAD SOFTWARE DEVELOPER Oxygen Saturation 98% 06/11/2019 11:34 AM LEAD SOFTWARE DEVELOPER Inhaled Oxygen Concentration - - Weight 71.7 kg (158 lb) 06/22/2020 10:52 AM LEAD SOFTWARE DEVELOPER Height 170.2 cm (5' 7 ) 06/22/2020 10:52 AM LEAD SOFTWARE DEVELOPER Body Mass Index 24.75 06/22/2020 10:52 AM LEAD SOFTWARE DEVELOPER Plan of Treatment Health Maintenance Due Date Last Done Comments PAP SMEAR 1985 HIV SCREENING 2001 HEPATITIS C SCREENING 05/07/2004 DTAP/TDAP/TD VACCINES (1 - Tdap) 2005 HEPATITIS B VACCINE (1 of 3 - 19+ 3-dose series) 2005 COVID-19 VACCINE (2023-2 5 season) 2023 04/23/2021, 09/11/2020, 08/21/2020 INFLUENZA VACCINE (#1) 2023 DEPRESSION SCREENING 04/16/2024 ZOSTER VACCINE (1 of 2) 2036 HIB VACCINE Aged Out No longer eligi ble based on patient's age to complete this topic HPV VACCINE Aged Out No longer eligi ble based on patient's age to complete this topic MENINGOCOCCAL (Group B) VACCINE SHARED DECISION-MAKING Aged Out No longer eligible based on patient's age to complete this topic MENINGOCOCCAL GROUPS A/C/Y/W VACCINE Aged Out No longer eligible b ased on patient's age to complete this topic PNEUMOCOCCAL VACCINE Aged Out No long er eligible based on patient's age to complete this topic Care Teams Vocational Rehabilitation Counselor Relationship Specialty Start Date End Date Luann Hua MD [address] [place] [address] PCP - General 11/20/19
--- OUTSIDE RECORDS SUMMARY | 2024-06-30 08:54 | XMS_ITS | Referral Summary ---
Author Organization [facility] Address [address] [place] [address] Care Team Providers Care Firefighting Equipment Specialist Name Role Phone Aracely Samuel MD Primary Care Provider Encounters Date Type Department Care Team Description 05/16/2024 12:38 PM YEAST CULTURE DEVELOPER - 05/16/2024 11:59 PM YEAST CULTURE DEVELOPER Hospital Encounter [facility] Medical Office [address] [id number] Bilateral breast lump; Mother currently breast-feeding Discharge Disposition: Discharge to home or self care 05/16/2024 12:38 PM YEAST CULTURE DEVELOPER - 05/16/2024 11:59 PM YEAST CULTURE DEVELOPER Hospital Encounter [address] [address] Bilateral breast lump; Mother currently breast-feeding Discharge Disposition: Discharge to home or self care 2024 11:15 AM YEAST CULTURE DEVELOPER Office Visit [facility] Medical [facility] Obstetrical Gynecology [address] [place] [phone] Yessi Lujan NP Mass of left breast, unspecified quadrant (Primary Dx); Bilateral breast lump; Mother currently breast-feeding 05/09/2024 Telephone [facility] Medical [facility] Obstetrical Gynecology [address] [place] [phone] Katie Serrano RN from Last 3 Months Allergies Active Allergy Reactions Criticality Noted Date Comments Amoxicillin Rash Medium 06/22/2022 Medications vit 15-vesz-iskfe-dh a 27mg iron- 800 mcg-250 mg capsule [...] 1 tablet (100 mcg total) by mouth faculty research physician before breakfast 90 tablet 4 Active Active [...] Returned/Scanned into chart: [] Schedule Mailed/sent via [email or web address]: [] IVF Injectable Meds Ordered - Pharm [...] Rubella Immune GBS Negative Reactive tracing SVE: /-2 S/p miso x2 Cook cath placed with patient consent. 60 cc in uterine and 60 cc in vaginal Initiate OT and titrate 2 x 2 to 20 Consider AROM when appropriate Pain management per patient wishes Anticipated 07/11/2023 1454 (CZ) VSS, afebrile Variable decelerations noted resolved with position changes. Now Category 1 Cook cath out SVE /-2 AROM performed with patient consent - moderate [...] discontinued before epidural due to decelerations SVE /-1 Anticipate Antepartum multigravida of advanced maternal age 1102/21/2023 Hypothyroidism during in third trimest er 02/21/2023 resulting from in vitro fertilization, antepartum 12/07/2022 Immunizations Immunization Administration Dates Next Due MMR 07/13/2023(Deferred: No longer n eeded) Tdap 04/24/2023 Varicella 07/13/2023(Deferred: No longer n eeded) Social History Tobacco Use Types Packs/Day Years [...] place to sleep or slept in a senior care (including now)? No 07/10/2023 [place] Depression Scale Answer Date Recorded [place] Depression Scale Total 3 08/24/2023 The thought [...] on file Legal Sex Female 1:47 PM YEAST CULTURE DEVELOPER Gender Identity Not on file Sexual Orientation Not on file Last Filed Vital Signs Vital Sign Reading Time Taken Comments Blood Pressure 90/60 2024 11:16 AM YEAST CULTURE DEVELOPER Pulse 102 07/13/2023 9:59 AM CDT Temperature 37.2 C (99 F) 07/13/2023 9:59 AM CDT Respiratory Rate 16 07/13/2023 9:59 AM CDT Oxygen Saturation 98% 07/13/2023 9:59 AM CDT Inhaled Oxygen Concentration - - Weight 71.8 kg (158 lb 3.2 oz) 2024 11:16 AM YEAST CULTURE DEVELOPER Height 170.2 cm (5' 7 ) 2024 11:16 AM YEAST CULTURE DEVELOPER Body Mass Index 24.78 2024 11:16 AM YEAST CULTURE DEVELOPER Plan of Treatment Not on file Procedures Procedure Name Priority Date/Time Associated Diagnosis Comments US BREAST BILATERAL LIMITED Schedule Routine, Read Routine (OP Routine) 05/16/2024 1:41 PM YEAST CULTURE DEVELOPER Bilateral breast lump Mother currently breast-feeding DIAGNOSTIC MAMMOGRAM BILATERAL W MAYKEL Schedule Routine, Read Routine (OP Routine) 05/16/2024 1:11 PM YEAST CULTURE DEVELOPER Bilateral breast lump Mother currently breast-feeding PAP AND HIGH RISK HPV, REFLEX TO GENOTYPING Routine 12/18/2023 9:44 AM CDT Well woman exam HEPATITIS C ANTIBODY Routine 06/22/2022 10:28 AM YEAST CULTURE DEVELOPER Encounter for fertility testing from Last 3 Months or Most Recently Relevant to Health Maintenance Results * US Breast Bilateral Limited (05/16/2024 1:41 PM YEAST CULTURE DEVELOPER) Anatomical Region Laterality Modality Breast Bilateral Ultrasound 05/16/2024 1:48 PM YEAST CULTURE DEVELOPER Impressions 05/16/2024 1:48 PM YEAST CULTURE DEVELOPER No imaging findings to suggest malignancy are seen. The patient may return to screening mammography as per ACR guidelines. OVERALL FINAL ASSESSMENT: [id number] Electronically signed by: Ni Ellis M.D. Narrative 05/16/2024 1:48 PM YEAST CULTURE DEVELOPER EXAMINATION: BILATERAL DIGITAL DIAGNOSTIC MAMMOGRAM AND DIGITAL [...] No masses are seen. Yessi Lujan NP [facility] MAMMO PROCEDURES Final R esult * DIAGNOSTIC MAMMOGRAM BILATERAL W MAYKEL (05/16/2024 1:11 PM YEAST CULTURE DEVELOPER) Anatomical Region Laterality Modality Breast Bilateral Mammography 05/16/2024 1:48 PM YEAST CULTURE DEVELOPER Impressions 05/16/2024 1:48 PM YEAST CULTURE DEVELOPER No imaging findings to suggest malignancy are seen. The patient may return to screening mammography as per ACR guidelines. OVERALL FINAL ASSESSMENT: [id number] Electronically signed by: Ni Ellis M.D. Narrative 05/16/2024 1:48 PM YEAST CULTURE DEVELOPER EXAMINATION: BILATERAL DIGITAL DIAGNOSTIC MAMMOGRAM AND DIGITAL [...] No masses are seen. Yessi Lujan NP [facility] MAMMO PROCEDURES Final R esult * Pap and High Risk HPV and Genotyping (Cytology Component) (12/18/2023 9:44 AM CDT) Thin prep (Pap test) 12/18/2023 9:44 AM CDT 12/19/2023 10:38 AM CDT Narrative PATHOLOGY [facility] - 12/24/2023 7:44 AM CDT EPIC results best viewed via link to PDF [facility] Kirsten Simeon [facility] [place] [address] Note to Patients: This report may contain [...] Gender: F : 1985 (Age: 38) Address: [address] [place], [place] [id number] Hospital #: [id number] Service: UNKNOWN Location: Patient Type: [facility] Taken: 12/18/2023 Received: 12/19/2023 Accessioned: [...] this test have been verified by the [facility] Molecular Infectious Disease laboratory. Correlate with reported cytology results, as applicable. Interpretive data last revised 22 tc/12/24/2023 07:44 CATHERINE Baird (ASCP) Report Electronically Reviewed [...] clinical information and biopsy results as indicated. [facility] Clinical Laboratory Improvement Amendments (CLIA) mandate that cytologic and histologic results be correlated for laboratory quality worker & improvement standards. FOR ALL HIGH-GRADE CASES [...] determined by the Surgical Pathology Department at [facility] as part of an ongoing vice president quality program and in compliance with federally mandated [...] determined by the Surgical Pathology Department of [facility]. It has not been cleared or approved by the U. S. Food and Drug Administration. us Janeth Thorpe CNM LAB CYTOLOGY ORDERA BLES Final Result PATHOLOGY [facility] * Hepatitis C antibody (06/22/2022 10:28 AM YEAST CULTURE DEVELOPER) Hep C Ab Nonreactive Nonreactive [facility] Comment:Antibodies to HCV no t detected. Does NOT exclude the possibility of recent exposure to HCV. Current interpretive data was last revised on 21 Blood 06/22/2022 10:2 8 AM YEAST CULTURE DEVELOPER 06/22/2022 2:11 PM YEAST CULTURE DEVELOPER us Rolan Suresh MD LAB MICROBIOLOGY - GENERA L ORDERABLES Final Result [facility] Department [place] [address] from Last 3 Months or Most Recently Relevant to Health Maintenance Insurance LOCAL PLUS LOCAL PLUS LOCAL PLUS Advance Directives For more information, please contact: [phone] * Full Code (Latest Code Status on File) Date Activated Date Inactivated Comments 07/11/2023 7:30 PM 07/13/2023 7:55 PM * Full Code Date Activated Date Inactivated Comments 07/10/2023 11:09 PM 07/11/2023 7:30 PM Full CPR in case of cardiopulmonary arrest * Full Code Date Activated Date Inactivated Comments 10/25/2022 7:54 AM 10/26/2022 5:33 AM Care Teams Firefighting Equipment Specialist Relationship Specialty Start Date End Date Aracely Samuel MD PCP - General Family Practice 06/21/22
--- OUTSIDE RECORDS SUMMARY | 2024-06-30 08:54 | XMS_ITS | Data Portability ---
Author Organization Lalina , [facility] Address [address] [place] [address] Assessment Encounter Date Assessment Date Assessment LastModified by Organization Details LastModified Time 03/06/2022 03/06/2022 Patient is a established patient who presents for a gynecological Annual Exam. The patient denies any changes in her medical history. The patient denies any changes in her family medical history. Annual Exam: She reports having no significant VAMP PRESSER symptoms. Her menses are regular, occurring every [...] None recorded. Lab prolactin, serum 2022 023 [facility], [address] [place], [address], 3 12:32:52 TSH + free T4, serum 2022 023 [facility], [address] [place], [address], 3 12:32:51 unlisted lab - anti-israel pb hormone (amh), female 2022 023 [facility] [facility], [address], [place], [address], 3 20:32:34 Referral infertility reproductiv e endocrinolo gy referral - Pt's just diagnosed with Testicular Cancer. They have been trying to conceive for >6 months. 2022 023 [facility], [address] [place] [address], [address], 3 16:42:58 Procedures None recorded. Surgeries None recorded. Imaging None recorded. Medication Orders None recorded. Patient TargetsNo targets recorded. Patient Instructions Encounter Date Encounter Id Patient Instructions Last Modified By Organization Details Last Modified Time 03/06/2022 [id number] Patient Health Questionnaire-9* [email or web address] Not available 03/23/2022 [...] for >6 months. Referring Physician: Karina Reyna, DRUG REGULATORY AFFAIRS SPECIALIST, Encounter Date: 06/05/2022 Results Created Date Observation Date Name Description Value Unit Range Abnormal Flag Note LastModifiedBy Organization Detail LastModifiedTime 06/07/19 23 06/07/2022 ANTI- MULLE AAKASH HORMO NE (AMH) [...] NUMBE R: 866.6 97.83 78 Not Available [facility] [address] [place], [address], 06/07/2022 20:32:34 06/05/1906/06/2022 TSH W/ T4, FREE TSH 2.82 mIU/L 0.55 - 4.78 normal Refer ence Range Femal e aged 18-Ad ult: 0.55- 4.78 Pregn alejandra Refer ence Range s First Trime ster 0.26- 2.66 Secon d Trime ster 0.55- 2.73 Third Trime ster 0.43- 2.91 [place], [address], 06/06/2022 12:32:51 06/05/1906/06/2022 TSH W/ T4, FREE T4, free 0.97 NG/dL 0.89 - 1.76 normal [place], [address], 06/06/2022 12:32:51 06/05/19 23 06/06/2022 PROLA CTIN prolactin 18.9 NG/mL Refer ence Range s Femal e aged 18-Ad ult Nonpr egnan t: 2.8-2 9.2 ng/mL Pregn ant: 9.7-2 08.5 ng/mL Post- menop ausal : 1.8-2 0.3 ng/mL Pregn alejandra, lacta tion, and the admin istra tion of oral contr acept vibha can incre ase prola ctin lucinda ntrat ions. Not Available [facility] [address] [place], [address], 06/06/2022 12:32:52 Result Notes None recorded. Problems No Known Problems Procedures Surgical History Date Name Laterality Status Provider Name and Address Organization Details Recorded Time 2 Date of Last Pap Smear completed Kelsey Claudio [facility] 06/02/2022 20:35:57 0 biopsy of vulva completed Bessy Mcconnell [facility] 02/09/2022 08:17:27 Imaging Results None recorded. Procedure Notes None recorded. Medical Equipment None Reported. Allergies Allergen ID Allergen Name Allergen Category Reaction Reaction Severity Criticality Documentation Date Start Date Code Code System Note Provider Name and Address Organization Details Recorded Time 463693 amoxicill in medicatio n rash moderate Not available 02/04/20212013 723 RxNorm React ion: Rash; Sever ity: Moder ate; Not Available Not Available Not Available Medications Name Sig Start Date Stop Date Status Note LastModified by Organization Details LastModified Time fluconazo le 150 mg tablet take 1 tablet (150 mg) by oral route once, then repeat in 3 days 03/06 completed fluconaz ole 150 mg oral tablet RxNorm: 728768 Allow Substitu tion: True Refill Denied: No [...] completed FlagyL 500 mg oral tablet RxNorm: 629201 Allow Substitu tion: True Refill Denied: No Edited by: Ju Gore) on 10/10/19 Stopped by: tiffanie( Ju Phelan) on 10/10/19 Not Available Not Available Not Available Vistaril 50 mg capsule take 1 capsule (50 mg) by oral route 4 times per day prn pain 03/06 completed VistariL 50 mg oral capsule RxNorm: 134455 Allow Substitu tion: True Refill Denied: No Edited by: Itzel Olmstead) on 11/05/19 Stopped by: Itzel Olmstead) on Not Available Not Available Not Available Estrace 0.01% (0.1 mg/gram) vaginal cream insert 1 gram by vaginal route twice daily 03/06 completed Estrace 0.01 % (0.1 mg/gram) Vaginal Cream RxNorm: 082634 Allow Substitu tion: True Refill Denied: No Edited by: Tresa Arriaga) on 10/10/19 Stopped by: Tresa Arriaga) on Not Available Not Available Not Available lidocaine 5 % topical ointment apply to affected area(s) by topical route 1-4 times daily as needed 03/06 completed lidocain e 5 % Topical Ointment RxNorm: 8929118 Allow Substitu tion: True Refill Denied: No Edited by: Itzel Olmstead) on 11/05/19 Stopped by: Itzel Olmstead) on Not Available Not Available Not Available Vitals Date Recorded Body weight Body mass index (BMI) Body height Systolic blood pressure Diastolic blood pressure Provider Name and Address Organization Details Last Updated DateTime 03/06/2022 92634.33 g 26 kg/m2 170.18 cm 112 mm[Hg] 70 mm[Hg] Estefanía Zuleimamadelyn [facility] 2 10:49:39 Date Recorded Body height Body mass index (BMI) Body weight Systolic blood pressure Diastolic blood pressure Provider Name and Address Organization Details Last Updated DateTime 06/05/2022 170.18 cm 26.6 kg/m2 56125.7 g 110 mm[Hg] 72 mm[Hg] Katie Pacheco [facility] IV 11:43:25 Social History Question Answer Notes LastModified by Organizat ion Details LastModified Time Tobacco Smoking Status Never Smoker Estefanía Vigil abigail, [facility] IV 03/06/2022 10:40:12 What Is Your Level [...] available 2021 10:40:11 Medical History Condition Response Other Cancer N High Blood Pressure N Colon Cancer N Cytomegalovirus N Hyperthyroidism N Herpes (HSV) N Breast Cancer N Blood Transfusion N MRSA N Lung Cancer N Hypothyroidism N Depression N Incontinence N Panic Attacks N Neurological Disorder N Deep Vein Thrombosis N Anxiety Disorder N Autoimmune disease N Arthritis N Tuberculosis/Positive PPD N Shingles N Polycystic Ovarian Syndrome N Cervical Cancer N Chlamydia N Hematuria N Stroke N Varicosities N Crohn's Disease N Seasonal allergies N Alzheimer's/Dementia N COPD/Emphysema N HPV/Genital Warts N Endometriosis N IBS (Irritable Bowel Syndrome) N History of Abnormal Pap N High Cholesterol N Liver Disease N Kidney Infection N Fibromyalgia N Ulcer N Kidney Disease N HIV N Gallbladder disease N Sickle Cell Disease/Trait N Von Willebrand disease N ADD/ADHD N Eating Disorder N Anemia N Diabetes Mellitus (non-insulin dependent ) N Ovarian Problems N Multiple Sclerosis N Gonorrhea N Frequent Urinary Tract infections N Osteopenia N Headaches/migraines N GERD (reflux) N Ovarian Cancer N Diabetes (insulin dependent) N Seizures/Epilepsy N Fibroids N Heart Attack N Asthma N Lupus N Endometrial Cancer N Rubella N Blood Clotting Disorder N Bipolar Disorder N Diabetes Mellitus (during ) N Ulcerative Colitis N Hepatitis N Heart Disease N Pulmonary Embolism N RPR N Chicken Pox N Osteoporosis N Gynecological History Statement/Question Response [...] SNOMED-CT Code Diagnosis ICD10 Code Diagnosis Note [id number] [facility] [address] [place] [address] 03/06/2022 10:34:21 03/06/2022 12:28:05 Gynecologic examination 53363383 Z01.419 Screening for malignant neoplasm of cervix 517227460 Z12.4 ASCCP guidelines reviewed with patient. Pap Hx: No pap collected today. Pt states understand ing and is amenable to POC. Depression screening 171 911898 Z13.31 Family david nning education 181456045 Z30.02 If no positive test after 6 months will call office. Pt states she was having sex a couple times a month. She was tracking periods but not having intercours e during ovulation. [id number] SMA [facility]ILLAGRAN [facility] [address] [place] [address] 06/05/2022 11:40:03 06/05/2022 12:24:40 Reproductive care management 939110741 Z31.81 Infertility study 759632 06 Z31.41 Health Concerns Section Related Observation LastModified by Organization Detai ls LastModified Time None Recorded Concern Status LastModified by Organization Details LastModified Time None Recorded Advance Directives Directive None Recorded Payers Encounter Date Sequence Insurance Name Policy Number Policy Flores Covered Member ID Flores Member ID Guarantor Name 03/06/2022 1 [facility] [id number] Juli Bhakta [id number] Juli Bhakta 06/05/2022 1 [facility] [id number] Juli Bhakta [id number] Juli Bhakta Notes Date Note Type [...] planning, ttc for 6 months. SAM VILLAGRAN [address] [facility], [place], [address], [facility] 03/06/2022 11:20:03 3 text/html InfertilityReported bypatient.Duration:tryin g [...] smear 03/06/22.LMP: 05/30/2022 ORI VILLAGRAN- [address] [facility], [place], [address], [facility] 06/05/2022 12:10:35 OBGyn Episode No OBEpisode recorded.
--- OUTSIDE RECORDS SUMMARY | 2024-06-30 08:54 | XMS_ITS | Patient Health Summary ---
Author Organization [facility] Address [address] [place] [address] Care Team Providers Care Drafter Assistant Name Role Phone Luann Hua MD Primary Care Provider [phone] Note from [facility],non-owned Affiliates and Associated Physician Practices is amultiple site organization consisting of ambulatory clinics and hospital sitesin [place], [place], [place] and [place]. This disclosure is being madepursuant to the Care Everywhere program and may not contain all information available regarding this patient. Last updated 18.[facility] Allergies * Amoxicillin(Rash) -Medium Criticality Medications * Be aware that medications may not be up to date on this document. Alwaysverify current medications with the patient. * Boric Acid(Started 03/22/2020) 600 mg capsules. Use as directed. # 30 capsules 2 refills by 03/22/2021 * fluconazole (DIFLUCAN) 200 MG tablet(Started 05/23/2020) One by mouth every other day for three doses then one weekly 1 refill by 05/23/2021 Social History Tobacco Use Types Packs/Day Years [...] Comments Blood Pressure 118/78 06/22/2020 10:52 AM MEDICAL RECORD ADMINISTRATOR Pulse 87 06/11/2019 11:34 AM MEDICAL RECORD ADMINISTRATOR Temperature 36.3 C (97.4 F) 03/10/2020 11:08 AM MEDICAL RECORD ADMINISTRATOR Respiratory Rate 16 06/11/2019 11:34 AM MEDICAL RECORD ADMINISTRATOR Oxygen Saturation 98% 06/11/2019 11:34 AM MEDICAL RECORD ADMINISTRATOR Inhaled Oxygen Concentration - - Weight 71.7 kg (158 lb) 06/22/2020 10:52 AM MEDICAL RECORD ADMINISTRATOR Height 170.2 cm (5' 7 ) 06/22/2020 10:52 AM MEDICAL RECORD ADMINISTRATOR Body Mass Index 24.75 06/22/2020 10:52 AM MEDICAL RECORD ADMINISTRATOR Procedures * SUSCEPTIBILITY YEAST(Performed 03/10/2020) * CULTURE YEAST WITH DIRECT FLUORESCENT RAJI(Performed 03/10/2020) Performed for Subacute vulvitis * WET PREP - POINT OF CARE (AMB) [facility]U(Performed 03/10/2020) Performed for Subacute vulvitis * PH FLUID - POCT (AMB) [facility](Performed 03/10/2020) Performed for Subacute vulvitis * FUNGUS RAJI - POINT OF CARE (AMB) [facility](Performed 03/10/2020) Performed for Subacute vulvitis * URINALYSIS AUTO - POINT OF CARE (AMB) [facility](Performed 06/11/2019) Performed for Acute cystitis with hematuria Results * SUSCEPTIBILITY YEAST (03/10/2020 12:47 PM MEDICAL RECORD ADMINISTRATOR) Source [facility]ITAL [facility] Organism ID JO ANN PARAPSILOSIS [facility] Amphotericin B 0.250 mcg/mL [facility] Anidulafungin 1 S mcg/mL [facility] Caspofungin 0.250 S mcg/mL [facility] Fluconazole 0.500 S mcg/mL [facility] 5-Flucytosine 0.120 mcg/mL [facility] Itraconazole 0.060 mcg/mL [facility] Micafungin 1 S mcg/mL [facility] Posaconazole 0.030 mcg/mL [facility] Voriconazole <=0.008 S mcg/mL [facility] Comment See below [facility] Comment: Drug concentrations are expressed in mcg/mL. S = Susceptible S-DD = Susceptible-Dose Dependent I = Intermediate R = Resistant Susceptible Dose Dependent (S-DD): susceptibility is dependent on achieving maximum blood levels. YADIRA interpretations are based on recently published CLSI guidelines. Only the YADIRA value is reported when CLSI guidelines are not available. This test was performed using a kit that has not been cleared or approved by the FDA. The analytical performance characteristics of this test have been determined by [facility] This test not be used for diagnosis without confirmation by other medically established means. Test Performed at: [facility] [address] [place] [id number] Sharda JAMISON 03/10/2020 12:4 7 PM MEDICAL RECORD ADMINISTRATOR 03/10/2020 12:49 PM MEDICAL RECORD ADMINISTRATOR Salome Duran MD LAB - MICROBIOLOGY ORDERABLES Performing Organization Address [facility]/ZIP Co de Phone Number [address] [address] * (ABNORMAL) CULTURE YEAST WITH DIRECT FLUORESCENT RAJI (03/10/2020 11:50 AM MEDICAL RECORD ADMINISTRATOR) Smear (A) [facility] Comment: CULTURE, YEAST, W/DIRECT FLUORESCENT RAJI Micro Number: [id number] Test Status: Final Specimen Source: GENITAL Specimen Quality: Adequate Smear: Few Budding yeast seen Result: Jo Ann parapsilosis species complex Test Performed at: [facility] [id number] HALEIGH SOSA MD Microbiology SPECIMEN FROM GENITAL SYSTEM / Unknown 03/10/2020 11:50 AM MEDICAL RECORD ADMINISTRATOR 03/10/2020 12:49 PM MEDICAL RECORD ADMINISTRATOR Salome Duran MD LAB - MICROBIOLOGY ORDERABLES Performing Organization Address City/[facility]/ZIP Co de Phone Number [address] [address] * PH FLUID - POCT (AMB) [facility] (03/10/2020) pH Vaginal 4.0 Fluid ENTIRE VAGINA / Unknown 03/10/2020 Narrative Authorizing Provider Result Elmira Duran MD LAB - POINT OF CAR E ORDERABLES * WET PREP - POINT OF CARE (AMB) [facility] (03/10/2020) pH Wet Prep 4.0 Yeast Wet Prep neg Trichomonas Wet Prep None seen Bacteria Wet Prep neg Whiff Test neg BODY FLUID SPECIMEN / Unknown 03/10/2020 Salome Duran MD LAB - POINT OF CAR E ORDERABLES * FUNGUS RAJI - POINT OF CARE (AMB) [facility] (03/10/2020) RAJI Prep No Fluid BODY FLUID SPECIMEN / Unknown 03/10/2020 Salome Duran MD LAB - POINT OF CAR E ORDERABLES * (ABNORMAL) URINALYSIS AUTO - POINT OF CARE (AMB) [facility] (06/11/2019 11:43 AM MEDICAL RECORD ADMINISTRATOR) Clarity UA POCT cloudy Color UA POCT yellow Leukocyte UA 15 Negative Nitrite UA POCT negative Negative Urobilinogen UA 0.2 0.1 - 1.0 Protein UA POCT 15 Negative pH UA 6.0 5.0 - 8.0 pH units Blood UA 5-10 Negative Specific Hadley UA POCT 1.015 1.002 - 1.030 Ketone UA 1.5 Negative Bilirubin UA POCT negative Negative Glucose UA negative Negative Expiration Date 12/28/2020 Lot # [id number] Verified Yes Yes Urine URINE / Unknown 06/11/2019 1 1:43 AM MEDICAL RECORD ADMINISTRATOR Marcia Sierra APRN-DEVELOPMENTAL WRITING INSTRUCTOR LAB - POINT OF CA RE ORDERABLES Care Teams Drafter Assistant Relationship Specialty Start Date End Date Luann Hua MD [address] [place] [address] PCP - General 11/20/19
[2024-06-30 10:28] LABS: Thyroid Stimulating Hormone < 0.015 uIU/mL (0.465-4.680); Total Triiodothyronine (T3) 1.53 NG/ML (0.97-1.69)
[2024-06-30 11:02] LABS: Free T4 Free Thyroxine 1.68 ng/dL (0.78-2.19)
== END 2024-06-30 08:30 | disposition home or self-care (01) ==
LOC: ANHLAB 08:31
PROVIDERS: PCP Family Medicine; Visit Provider Family Medicine
DX: E03.9 Hypothyroidism, unspecified (principal); E06.3 Autoimmune thyroiditis
CPT/HCPCS: 36415; 84439; 84443; 84445; 84480